=== PATIENT | female | born 1990 | race Native Hawaiian/Other Pacific Islander ===

== ENCOUNTER 2022-04-25 01:02 | Emergency (ER) | payer SELFPAY ==
[~2022-04-25] VITALS: Ht 167.6 cm; Wt 68.0 kg
[2022-04-25 01:15] VITALS: BP 106/76
--- NOTE | 2022-04-25 01:18 | NUR ---
TO LOBBY A/W BED AMBULATORY
--- NOTE | 2022-04-25 03:21 | NUR ---
ER MD AT BEDSIDE EXAMINING PT
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
--- NOTE | 2022-04-25 03:34 | NUR ---
PT TAKEN TO XRAY
[2022-04-25] MEDS ORDERED: KETOROLAC 30 MG/ML VIAL IM ONE (03:35)
[2022-04-25] MEDS ORDERED: diazePAM 5 MG TAB PO ONE (03:35)
[2022-04-25] MEDS ORDERED: NAPR-54 PO (05:12)
[2022-04-25] MEDS ORDERED: CYCL-711 PO (05:12)
[2022-04-25 05:27] VITALS: BP 110/78
--- NOTE | 2022-04-25 05:28 | NUR ---
Patient discharged with v/s stable. Written and verbal after care instructions given and explained. Patient alert, oriented and verbalized understanding of instructions. Ambulatory with steady gait. All questions addressed prior to discharge. ID band removed. Patient advised to follow up with PMD. Rx of FLEXERIL AND NAPROSYN given. Patient educated on indication of medication including possible reaction and side effects. Opportunity to ask questions provided and answered. VSS, A/OX4, AMBULATORY, UNLABORED BREATHING, AND CALM DEMEANOR.
== END 2022-04-25 05:26 | disposition home or self-care (01) ==
LOC: MED 01:02
DX: S63.501A Unspecified sprain of right wrist, initial encounter (principal); S16.1XXA Strain of muscle, fascia and tendon at neck level, initial encounter; S80.02XA Contusion of left knee, initial encounter; S80.01XA Contusion of right knee, initial encounter; Z88.1 Allergy status to other antibiotic agents; W18.30XA Fall on same level, unspecified, initial encounter; Y93.89 Activity, other specified; Y92.89 Other specified places as the place of occurrence of the external cause; Y99.8 Other external cause status
CPT/HCPCS: 72040; 73100; 73560; 96372; 99284; J1885